=== PATIENT | male | born 1955 | race Caucasian/White ===

== ENCOUNTER 2021-07-23 17:21 | Emergency (ER) | payer MEDICARE, OTHER ==
[~2021-07-23] VITALS: Ht 177.8 cm; Wt 111.6 kg
[2021-07-23 17:26] VITALS: BP 172/100
--- OUTSIDE RECORDS SUMMARY | 2021-07-23 17:27 | XMS REPORT | Summary of Care ---
Author [facility] Organization [facility] Address Unknown Phone Unavailable Care Team Providers Care Panelboard Assembler Name Role Phone SELVIN PERES, DR. Yolette FOREMAN PCP Encounter [facility] MICHAEL Baron [phone] Date(s): 06/21/21 - 06/21/21 [facility] [address] [place] [id number] Discharge Disposition: Home - 01 Attending Physician: AHSAN VIRGEN MD Admitting Physician: AHSAN VIRGEN MD Referring Physician: AHSAN VIRGEN MD Vital Signs Most recent to 1 oldest [Reference Range]: Vital Signs Post procedure Status/Type (06/21/21 9:50 AM) Temperature 97.2 DegF [96.8-99.7 DegF] (06/21/21 9:35 AM) Temp Method Temporal (06/21/21 9:35 AM) Heart Rate 73 bpm (06/21/21 9:35 AM) Respiratory Rate 12 br/min [15-20 br/min] *LOW* (06/21/21 9:35 AM) Blood Pressure 129/84 mmHg [90-180/50-90 mmHg] (06/21/21 9:35 AM) NIBP MAP Calc [65 99 mmHg mmHg] (06/21/21 9:35 AM) Heart Rhythm Sinus/atrial rhythm Interpretation (06/21/21 9:50 AM) Problem List No data available for this section Allergies, Adverse Reactions, Alerts Substance Reaction Severity Status sulfADIAZINE Active Medications Centrum Silver oral tablet 1 TAB, PO, Daily, 0 Refill(s) Start Date: 06/21/21 Status: Ordered lisinopril 20 mg oral tablet 1 TAB, PO, Daily, 0 Refill(s) Start Date: 06/21/21 Status: Ordered Results No data available for this section Immunizations No data available for this section Procedures Procedure Date Related Diagnosis Body Site Status EGD1 06/21/21 Completed 1auto-populated from documented surgical case Social History No data available for this section Functional Status No data available for this section Assessment and Plan No data available for this section Hospital Discharge Instructions No data available for this section
--- OUTSIDE RECORDS SUMMARY | 2021-07-23 17:27 | XMS REPORT | Clinical Summary ---
Author Author [facility] Organization [facility] Address Unknown Phone Unavailable Care Team Providers Care Telecommunications Support Name Role Phone Romana Valle BIOLOGICAL AIDE-BRANDING MACHINE OPERATOR Unavailable Jazmín Miller BIOLOGICAL AIDE-BRANDING MACHINE OPERATOR Unavailable Kam Jarvis MD PCP Stephie Araujo RN Unavailable Unavailable Carly Gamboa Unavailable Unavailable Source Comments Some departments are not documenting in the electronic medical record. If you d o not see the information that you expected, contact Release of Information in [facility] Information Management department at [phone] for further assistan ce in locating additional records.[facility] Allergies Comments Active Allergy Reactions Severity Noted Date Told he had a reaction as a child, unsure of what it was. No reactions to any other antibiotics since Sulfa (Sulfonamide UNKNOWN Low 02/03/2011 Antibiotics) Medications End Date Status Medication Sig Dispensed Refills Start Date Active MULTIVITAMIN PO Take 1 Tab by 0 mouth daily. Active lisinopril (PRINIVIL; Take 20 mg by 0 ZESTRIL) 20 mg tablet mouth daily. Active omeprazole DR(+) Take 1 Cap by 0 (PRILOSEC) 40 mg capsule mouth daily. 6 Active losartan (COZAAR) 50 mg Take 1 Tab by 0 tablet mouth daily. 6 Active CIALIS 20 mg tablet Take 1 Tab by 0 mouth as 6 Needed. Active Problems Problem Noted Date History of hepatitis C 09/24/2016 Delvalle's esophagus without dysplasia 03/14/2014 Chronic hepatitis C 01/29/2014 Fatty liver 01/29/2014 GERD (gastroesophageal reflux disease) 01/29/2014 Hypertension 01/29/2014 Immunizations Name Administration Dates Next Due DT Vaccine 02/03/2011 Hepatitis B Vaccine Adult 01/28/2015, 08/31/2014, 3 Dose IM Surgical History Surgery Date Site/Laterality Comments COLONOSCOPY LIVER BIOPSY SC ESOPHAGOSCOPY FLEXIBLE TRANSORAL DIAGNOSTIC Medical History Medical History Date Comments HTN (hypertension) Social History Date Tobacco Use Types Packs/Day Years Used Never Smoker Smokeless Tobacco: Never Used Comments Alcohol Use Standard Drinks/Week No 0 (1 standard drink = 0.6 o z pure alcohol) Sex Assigned at Date Recorded Not on file Last Filed Vital Signs Reading Time Taken Comments Vital Sign 132/78 09/24/2016 12:00 PM CDT Blood Pressure 58 09/24/2016 12:00 PM CDT Pulse 36.4 C (97.5 F) 09/24/2016 12:00 PM CDT Temperature 16 09/24/2016 12:00 PM CDT Respiratory Rate 97% 09/24/2016 12:00 PM CDT Oxygen Saturation - - Inhaled Oxygen Concentration 108.3 kg (238 lb 12.8 oz) 09/24/2016 12:00 PM CDT Weight 177.8 cm (5' 10") 09/24/2016 12:00 PM CDT Height 34.26 09/24/2016 12:00 PM CDT Body Mass Index Plan of Treatment Health Maintenance Due Date Last Done Comments PHYSICAL (COMPREHENSIVE) 1971 EXAM COLORECTAL CANCER 2003 SCREENING SHINGLES RECOMBINANT 2003 VACCINE (1 of 2) PNEUMONIA (PPSV23) 2018 VACCINE (1 of 1 - PPSV23) DTAP/TDAP VACCINES (2 - 02/03/2021 02/03/2011 Tdap) INFLUENZA VACCINE 09/01/2021 Results Not on filefrom Last 3 Months Insurance Type Payer Benefit Subscriber ID Effective Phone Address Plan / Dates Group Indemnity [facility] [id number] 2020-P CHOICE/CHO resent ICE PLUS Advance Directives Patient Outsewer Explanation Type Date Recorded Advance 12/07/2013 10:52 AM Directive/DPOA
[2021-07-23] MEDS ORDERED: BSS 15 ML ONE (17:28)
[2021-07-23] MEDS ORDERED: FLUORESCEIN (FLUOR-I-STRIPS) 1 MG STRP ONE (17:28)
[2021-07-23] MEDS ORDERED: TETRACAINE 0.5% OPHTH SOLN 4 ML BTL (SINGLE DOSE ONLY) ONE (17:28)
[2021-07-23] MEDS ORDERED: ERYTHROMYCIN OPHTH OINT 1 GM (SINGLE USE) TUBE OP STA (18:05)
--- NOTE | 2021-07-23 18:06 | ED EENT ---
History of Present Illness General Chief Complaint: Eye Problems Stated Complaint: LT EYE INJ Nursing Triage Note: Patient reports he got something in his eye while he was working on a truck on Saturday. He reports his eye has been painful and sensitive to light since Saturday. History of Present Illness Date Seen by Provider: Jul 23, 2021 Time Seen by Provider: 17:30 Initial Comments 65-year-old male presents with left eye irritation and foreign body sensation for the past 3 days. 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 He did rinse his eyes out and felt okay but the next morning he was having left eye irritation some mild blurred vision. Today he went to an urgent care and was looked at and referred to the ER. Allergies and Home Medications Allergies Coded Allergies: Sulfa (Sulfonamide Antibiotics) (Verified Allergy, Unknown, 07/23/21) Home Medications Erythromycin Base 1 Gm Oint...g., 0 OP Q8H 1/2 inch Prescribed by: BYRON STEIN on 07/23/21 1830 Patient Home Medication List Home Medication List Reviewed: Yes Review of Systems Review of Systems Constitutional: no symptoms reported Eyes: See HPI, Blurred Vision, Foreign Body Sensation, Inflammation; Denies Photophobia, Denies Previous Injury, Denies Contact Lenses Ears: No Symptoms Reported Gastrointestinal: no symptoms reported Neurological: No Symptoms Reported Past Beprgxb-Gwzfxc-Pixmyg Hx Patient Social History Tobacco Use?: No Substance use?: No Alcohol Use?: Yes Alcohol Frequency: Once in a while Pt feels they are or have been: No Physical Exam Vital Signs Vital Signs - First Documented 07/23/21 17:26 Temp 36.5 Pulse 68 Resp 18 B/P (MAP) 172/100 (124) Pulse Ox 97 O2 Delivery Room Air Height, Weight, BMI Height: '" Weight: lbs. oz. kg; 35.00 BMI Method: General Appearance: WD/WN, no apparent distress Eyes: left eye foreign body (tiny central cornea, embedded dark FB); bilateral eye PERRL, bilateral eye EOMI Procedures/Interventions Eye : Location: left eye Eye FB Removal: removal w/ cotton swab Anesthesia (gtts): Tetracaine Progress/Procedure Conclusion removed FB successfully, pt tolerated well. Small "divot" abrasion in area where FB was embedded in central cornea Progress/Results/Core Measures Results/Orders My Orders Orders - ROVENSTINE,BYRON L DO Fluorescein Strips ([id number]) (07/23/21 17:28) Tetracaine 0.5% Ophth Rylie Sdv (Tetracai (07/23/21 17:28) Balanced Salt Irrigation Soln (Bss Irrig (07/23/21 17:28) Erythromycin Ophth Oint (Erythromycin Op (07/23/21 18:05) Medications Given in ED Current Medications Medications Dose Ordered Sig/Júnior Route Start Time Stop Time Status Last Admin Dose Admin Balanced Salt Solution 15 ml STK-MED ONCE .ROUTE 07/23/21 17:28 07/23/21 17:32 DC 07/23/21 17:44 15 ML Fluorescein Sodium 1 mg STK-MED ONCE .ROUTE 07/23/21 17:28 07/23/21 17:32 DC 07/23/21 17:44 1 MG Tetracaine HCl 4 ml STK-MED ONCE .ROUTE 07/23/21 17:28 07/23/21 17:32 DC 07/23/21 17:44 4 ML Vital Signs/I&O 07/23/21 17:26 Temp 36.5 Pulse 68 Resp 18 B/P (MAP) 172/100 (124) Pulse Ox 97 O2 Delivery Room Air Blood Pressure Mean: 124 Departure Impression Primary Impression: Foreign body of cornea Qualified Codes: T15.02XA - Foreign body in cornea, left eye, initial encounter Disposition: 01 HOME, SELF-CARE Condition: Improved Departure-Patient Inst. Decision time for Depature: 18:04 Referrals: NO,LOCAL PHYSICIAN (PCP/Family) Primary Care Physician Patient Instructions: Foreign Body in Eye ED Add. Discharge Instructions: Follow up with a local eye doctor in 1 to 2 days for re-examination. Continue the eye ointment - twice daily All discharge instructions reviewed with patient and/or family. Voiced understanding. Scripts Erythromycin Base (Erythromycin Opthalmic Ointment) 1 Gm Oint...g. 0 OP Q8H for 3 Days, #1 TUBE 1/2 inch Prov: BYRON STEIN DO 07/23/21 BYRON STEIN DO Jul 23, 2021 18:06
[2021-07-23] MEDS ORDERED: ERYT1OIN6 OP (18:30)
== END 2021-07-23 19:03 | disposition home or self-care (01) ==
LOC: ER FS 17:24
DX: T15.02XA Foreign body in cornea, left eye, initial encounter (principal)
CPT/HCPCS: 99282